=== PATIENT | female | born 1990 | race Caucasian/White ===

== ENCOUNTER 2021-01-28 19:42 | Emergency (ER) | payer MEDICAID ==
[~2021-01-28] VITALS: Ht 162.6 cm; Wt 83.0 kg
[2021-01-28 19:58] VITALS: BP 123/66
[2021-01-28] MEDS ORDERED: IBUPROFEN 400MG TABLET PO ONE (21:15)
[2021-01-28] MEDS ORDERED: IBUP-2028 MT (21:58)
== END 2021-01-28 22:16 | disposition home or self-care (01) ==
LOC: ER 19:42
DX: S93.402A Sprain of unspecified ligament of left ankle, initial encounter (principal); W18.39XA Other fall on same level, initial encounter; Y93.89 Activity, other specified; Y92.89 Other specified places as the place of occurrence of the external cause; Y99.8 Other external cause status
CPT/HCPCS: 29515; 73610; 81025; 99283